=== PATIENT | male | born 1995 | race African-American/Black ===

== ENCOUNTER 2018-07-17 02:45 | Emergency (ER) | payer SELFPAY ==
[~2018-07-17] VITALS: Ht 167.6 cm; Wt 64.0 kg
[2018-07-17] MEDS ORDERED: HYDROCODONE/ACETAMINOPHEN 5/325MG TABLET PO ONE (03:45)
[2018-07-17 05:13] VITALS: BP 114/74
== END 2018-07-17 05:19 | disposition home or self-care (01) ==
LOC: ER 03:43
DX: S10.83XA Contusion of other specified part of neck, initial encounter (principal); S20.229A Contusion of unspecified back wall of thorax, initial encounter; F12.10 Cannabis abuse, uncomplicated; F17.210 Nicotine dependence, cigarettes, uncomplicated; V43.52XA Car driver injured in collision with other type car in traffic accident, initial encounter; Y93.89 Activity, other specified; Y92.488 Other paved roadways as the place of occurrence of the external cause
CPT/HCPCS: 72040; 99283